=== PATIENT | male | born 1940 | race Caucasian/White ===

== ENCOUNTER 2023-01-28 10:28 | Emergency (ER) | payer MEDICARE, OTHER ==
[~2023-01-28] VITALS: Ht 172.7 cm; Wt 136.5 kg
[2023-01-28] MEDS ORDERED: MECO10005 PO (10:41)
[2023-01-28] MEDS ORDERED: ASPI81TA87 PO (10:41)
[2023-01-28] MEDS ORDERED: ROSU20TA73 PO (10:41)
[2023-01-28] MEDS ORDERED: DONE-51 PO (10:41)
[2023-01-28] MEDS ORDERED: OXYB5TAB20 PO (10:41)
[2023-01-28] MEDS ORDERED: MEMA10TA55 PO (10:41)
[2023-01-28] MEDS ORDERED: PIPERACILLIN/TAZO 3.375 GM/D5W 50 ML IV ONE ×2 (12:45→19:00)
[2023-01-28 13:01] LABS: BASOPHILS % (AUTO) 0.3 % (0.0-2.0); EOSINOPHILS % (AUTO) 1.8 % (1.0-6.0); HEMATOCRIT 38.5 % (41-53); HEMOGLOBIN 12.4 g/dL (13.5-17.5); LYMPHOCYTES # (AUTO) 1.3 K/uL (1.0-4.8); LYMPHOCYTES % (AUTO) 16.6 % (22.0-44.0); MEAN CORPUSCULAR HEMOGLOBIN 27.5 pg (26.0-34.0); MEAN CORPUSCULAR HGB CONC 32.2 G/dL (31.0-37.0); MEAN CORPUSCULAR VOLUME 86 fL (80-100); MONOCYTES # (AUTO) 0.5 K/uL (0.1-1.0); MONOCYTES % (AUTO) 6.4 % (2.0-9.0); NEUTROPHILS # (AUTO) 5.8 K/uL (1.8-7.7); NEUTROPHILS % (AUTO) 74.9 % (40.0-70.0); PLATELET COUNT (AUTO) 203 K/uL (150-450); RED CELL DISTRIBUTION WIDTH 17.1 % (11.5-14.5)
[2023-01-28 13:10] LABS: CALCIUM, TOTAL 9.4 mg/dL (8.8-10.5); CREATININE 1.21 mg/dL (0.60-1.30); POTASSIUM 4.2 mmol/L (3.5-5.1)
[2023-01-28 13:15] LABS: ALBUMIN 3.5 g/dL (3.4-5.0); BILIRUBIN,TOTAL 0.4 mg/dL (0.1-1.0); PROTHROMBIN TIME 10.4 SEC (9.4-11.6); TOTAL PROTEIN, SERUM 7.5 g/dL (6.4-8.2)
[2023-01-28 13:28] LABS: LACTIC ACID 0.9 mmol/L (0.4-2.0)
[2023-01-28 18:43] LABS: COVID AG,FIA SOURCE NASAL SWAB
[2023-01-28 19:15] VITALS: BP 140/77
== END 2023-01-28 22:07 | disposition short-term general hospital (02) ==
LOC: EMS 10:31
DX: L03.116 Cellulitis of left lower limb (principal); J44.9 Chronic obstructive pulmonary disease, unspecified; E11.9 Type 2 diabetes mellitus without complications; I10 Essential (primary) hypertension; Z87.891 Personal history of nicotine dependence; Z98.890 Other specified postprocedural states; Z20.822 Contact with and (suspected) exposure to COVID-19
CPT/HCPCS: 99285; 96365; 71045; 96367; 87426; 80053; 83605; 83880; 84484; 85025; 85610; 85730; 87040; 36415; 93005; J2543